=== PATIENT | male | born 1965 | race Caucasian/White ===

== ENCOUNTER 2018-04-20 05:49 | Day surgery (SDC) | payer OTHER ==
[2018-04-16 12:14] VITALS: BP 140/91
[2018-04-20] VITALS (18 sets, daily range): BP systolic 100–144; BP diastolic 65–89
[~2018-04-20] VITALS: Ht 188 cm; Wt 142.5 kg
[~2018-04-20 05:49] MED LIST: APIX5TAB PO; CARI350T PO; LISI1TAB11 PO; METO25TA6 PO; TAMS-1 PO; TRAM50TA4 PO; ZOLP10TA2 PO
[2018-04-20] MEDS ORDERED: LACTATED RINGERS 1000ML 1,000 ML IV ONE (06:14)
[2018-04-20] MEDS: CEFAZOLIN SODIUM 1 GM VIAL ONE ×2 (06:58→08:25)
[2018-04-20] MEDS ORDERED: DEXAMETHASONE SOD PHOSPHATE 10MG/ML 1ML VIAL ONE (07:41)
[2018-04-20] MEDS ORDERED: MIDAZOLAM HCL 1 MG/ML 2ML VIAL ONE (07:41)
[2018-04-20] MEDS ORDERED: GLYCOPYRROLATE 1 MG/5 ML SYRINGE ONE (07:41)
[2018-04-20] MEDS ORDERED: ONDANSETRON HCL 4 MG/2 ML VIAL ONE ×2 (07:41→10:09)
[2018-04-20] MEDS ORDERED: LIDOCAINE PF 2% 5ML ABBOJECT ONE ×2 (07:41→07:43)
[2018-04-20] MEDS ORDERED: FENTANYL CITRATE PF 50 MCG/1 ML 2ML VIAL ONE (07:42)
[2018-04-20] MEDS ORDERED: PROPOFOL 10 MG/ML 20ML VIAL IV ONE (07:42)
[2018-04-20] MEDS ORDERED: NEOSTIGMINE 5MG/5ML SYR IV ONE (07:42)
[2018-04-20] MEDS ORDERED: ROCURONIUM 10MG/1ML SYR 10 MG/ML ML ONE (07:42)
[2018-04-20] MEDS ORDERED: PHENYLEPHRINE HCL 10 MG/ML 1ML VIAL IV ONE ×2 (07:43→07:45)
[2018-04-20] MEDS ORDERED: IOHEXOL-350 50ML VIAL IV ONE (07:44)
[2018-04-20] MEDS ORDERED: CEFAZOLIN 3GM /D5W 100ML 100 ML IV PRN (08:00)
[2018-04-20] MEDS ORDERED: MEPERIDINE-PF 25 MG/ML SYG ONE ×2 (10:13→10:23)
== END 2018-04-20 11:35 | disposition home or self-care (01) ==
LOC: DAH 05:49
PROVIDERS: ATTEND Surgery
DX: N20.0 Calculus of kidney (principal); N40.0 Benign prostatic hyperplasia without lower urinary tract symptoms
CPT/HCPCS: 50590; 52332; 74420; 87088; A4354; A4358; A4510; A4600; C2617; J0690; J1100; J2001 ×2; J2175 ×2; J2250; J2370 ×2; J2405 ×2; J2704; J2710; J3010; J3490; J7120; Q9967

== ENCOUNTER 2018-04-25 11:31 | Emergency (ER) | payer OTHER ==
[2018-04-25 12:09] LABS: APPEARANCE,URINE TURBID (CLEAR); BILIRUBIN,URINE SMALL (NEGATIVE); COLOR,URINE RED (YELLOW); GLUCOSE, URINE (UA) NEGATIVE (NEGATIVE); KETONES,URINE 5 mg/dL (NEGATIVE); LEUKOCYTE ESTERASE ,URINE SMALL (NEGATIVE); NITRATE,URINE POSITIVE (NEGATIVE); OCCULT BLOOD,URINE LARGE (NEGATIVE); PROTEIN,URINE >=300 (NEGATIVE)
[2018-04-25 12:18] LABS: BACTERIA,URINE Rare /HPF (None Seen); RBC,URINE TNTC /HPF (0-1); SQUAMOUS EPITHELIAL CELL,UR None Seen /HPF (0-2)
[2018-04-25] MEDS ORDERED: METOCLOPRAMIDE 10 MG/2 ML VIAL ONE (12:48)
[2018-04-25] MEDS ORDERED: ONDANSETRON HCL 4 MG/2 ML VIAL ONE (12:48)
[2018-04-25] MEDS ORDERED: SODIUM CHLORIDE 0.9% 1000ML 1,000 ML IV ONE (12:48)
[2018-04-25] MEDS ORDERED: KETOROLAC TROMETHAMINE 30MG/ML ONE (12:49)
[2018-04-25 13:04] LABS: BASOPHILS % (AUTO) 0.3 % (0.0-5.0); EOSINOPHILS % (AUTO) 2.6 % (0.0-8.0); HEMATOCRIT 39.5 % (42-54); LYMPHOCYTES % (AUTO) 11.6 % (21.0-51.0); MEAN CORPUSCULAR HGB CONC 34.5 g/dL (32.0-36.0); MEAN CORPUSCULAR VOLUME 98.6 fL (79-99); MONOCYTES % (AUTO) 4.8 % (3.0-13.0); NEUTROPHILS % (AUTO) 80.7 % (40.0-77.0); PLATELET COUNT (AUTO) 209 K/uL (130-400); RED CELL DISTRIBUTION WIDTH 15.5 % (11.0-15.5); WHITE BLOOD COUNT (AUTO) 8.6 K/uL (4.8-10.8)
[2018-04-25 13:17] LABS: CREATININE 1.1 mg/dL (0.5-1.5); POTASSIUM 4.3 mmol/L (3.5-5.1)
[2018-04-25 13:18] LABS: INR 0.98 (0.85-1.15); PARTIAL THROMBOPLASTIN TIME 29.7 SEC (26.3-35.5); PROTHROMBIN TIME 10.3 SEC (9.6-11.6)
[2018-04-25 13:21] LABS: ALBUMIN 3.6 g/dL (3.5-5.0); BILIRUBIN,TOTAL 0.5 mg/dL (0.2-1.0)
== END 2018-04-25 15:10 | disposition home or self-care (01) ==
LOC: EDH 11:31
DX: S22.42XA Multiple fractures of ribs, left side, initial encounter for closed fracture (principal); R30.0 Dysuria; R31.9 Hematuria, unspecified; E78.5 Hyperlipidemia, unspecified; I48.91 Unspecified atrial fibrillation; Z98.890 Other specified postprocedural states; Z87.891 Personal history of nicotine dependence; W01.198A Fall on same level from slipping, tripping and stumbling with subsequent striking against other object, initial encounter; Y93.89 Activity, other specified; Y92.091 Bathroom in other non-institutional residence as the place of occurrence of the external cause; Y99.8 Other external cause status
CPT/HCPCS: 36415; 71101; 80053; 81001; 83605; 83690; 85025; 85610; 85730; 87088; 96374; 96375; 99284; J1885; J2405; J2765; J7030

== ENCOUNTER 2018-05-03 23:06 | Emergency (ER) | payer OTHER ==
[2018-05-03 23:32] LABS: APPEARANCE,URINE Clear (CLEAR); BILIRUBIN,URINE Negative (NEGATIVE); COLOR,URINE Yellow (YELLOW); GLUCOSE, URINE (UA) Negative (NEGATIVE); KETONES,URINE Negative (NEGATIVE); LEUKOCYTE ESTERASE ,URINE Moderate (NEGATIVE); NITRATE,URINE Negative (NEGATIVE); OCCULT BLOOD,URINE Large (NEGATIVE); PH,URINE 5.5 (5.0-8.0); PROTEIN,URINE POS 2+ (NEGATIVE)
[2018-05-03 23:43] LABS: BACTERIA,URINE Rare /HPF (None Seen); RBC,URINE 26-50 /HPF (0-1); SQUAMOUS EPITHELIAL CELL,UR Rare /HPF (0-2); YEAST,URINE BUDDING Few /HPF (None Seen)
[2018-05-04 01:26] LABS: BASOPHILS % (AUTO) 0.3 % (0.0-5.0); EOSINOPHILS % (AUTO) 3.2 % (0.0-8.0); HEMATOCRIT 36.9 % (42-54); LYMPHOCYTES % (AUTO) 10.3 % (21.0-51.0); MEAN CORPUSCULAR HEMOGLOBIN 33.6 pg (27.0-33.0); MEAN CORPUSCULAR HGB CONC 34.1 g/dL (32.0-36.0); MEAN CORPUSCULAR VOLUME 98.3 fL (79-99); MONOCYTES % (AUTO) 6.2 % (3.0-13.0); PLATELET COUNT (AUTO) 306 K/uL (130-400); RED BLOOD CELL COUNT(AUTO) 3.75 MIL/uL (4.50-6.20); RED CELL DISTRIBUTION WIDTH 14.8 % (11.0-15.5); WHITE BLOOD COUNT (AUTO) 8.7 K/uL (4.8-10.8)
[2018-05-04 01:32] LABS: POTASSIUM 4.5 mmol/L (3.5-5.1)
[2018-05-04 01:38] LABS: BILIRUBIN,TOTAL 0.3 mg/dL (0.2-1.0); TOTAL PROTEIN, SERUM 7.2 g/dL (6.0-8.3)
[2018-05-04] MEDS ORDERED: SODIUM CHLORIDE 0.9% 1000ML 1,000 ML IV ONE (02:20)
[2018-05-04] MEDS ORDERED: LIDOCAINE HCL 1% 20 ML VIAL ONE (02:21)
[2018-05-04] MEDS ORDERED: SODIUM CHLORIDE 0.9% 50 ML IV ONE (02:21)
[2018-05-04] MEDS ORDERED: KETOROLAC TROMETHAMINE 30MG/ML ONE (02:21)
[2018-05-04] MEDS ORDERED: METOCLOPRAMIDE 10 MG/2 ML VIAL ONE (03:12)
[2018-05-04] MEDS ORDERED: PHENAZOPYRIDINE HCL 200 MG TABLET ONE (03:13)
== END 2018-05-04 03:38 | disposition home or self-care (01) ==
LOC: EDH 23:06
DX: R30.0 Dysuria (principal); R33.9 Retention of urine, unspecified; R31.9 Hematuria, unspecified; I48.91 Unspecified atrial fibrillation; E78.5 Hyperlipidemia, unspecified; Z88.1 Allergy status to other antibiotic agents; Z88.8 Allergy status to other drugs, medicaments and biological substances; Z88.2 Allergy status to sulfonamides
CPT/HCPCS: 36415; 74018; 80053; 81001; 85025; 96361; 96374; 96375; 99284; J1885; J2765; J7030

== ENCOUNTER 2018-05-11 06:05 | Day surgery (SDC) | payer OTHER ==
[2018-05-08 13:30] VITALS: BP 127/88
[2018-05-11] VITALS (12 sets, daily range): BP systolic 105–136; BP diastolic 63–98
[~2018-05-11] VITALS: Ht 185.4 cm; Wt 141.2 kg
[2018-05-11] MEDS ORDERED: LIDOCAINE HCL 2% PF 20 ML JEL DISP.SYRIN MM ONE (07:25)
[2018-05-11] MEDS ORDERED: PROPOFOL 10 MG/ML 20ML VIAL IV ONE ×2 (07:28→09:01)
[2018-05-11] MEDS ORDERED: MIDAZOLAM HCL 1 MG/ML 2ML VIAL ONE (07:28)
[2018-05-11] MEDS ORDERED: FENTANYL CITRATE PF 50 MCG/1 ML 2ML VIAL ONE ×2 (07:29→09:42)
[2018-05-11] MEDS ORDERED: ONDANSETRON HCL 4 MG/2 ML VIAL ONE (07:54)
[2018-05-11] MEDS ORDERED: FAMOTIDINE/PF 20 MG/2 ML VIAL IV ONE (07:55)
[2018-05-11] MEDS ORDERED: PHEN-847 PO (08:01)
[2018-05-11] MEDS ORDERED: MELO7.5O PO (08:01)
[2018-05-11] MEDS ORDERED: AMOX1TAB16 PO (08:01)
[2018-05-11] MEDS ORDERED: DICY20TA11 PO (08:01)
[2018-05-11] MEDS ORDERED: MELO-106 PO (08:03)
[2018-05-11] MEDS ORDERED: LACTATED RINGERS 1000ML 1,000 ML IV ONE (08:08)
== END 2018-05-11 10:30 | disposition home or self-care (01) ==
LOC: DAH 06:05
PROVIDERS: ATTEND Surgery
DX: Z46.6 Encounter for fitting and adjustment of urinary device (principal); N40.1 Benign prostatic hyperplasia with lower urinary tract symptoms; N13.8 Other obstructive and reflux uropathy; Z87.442 Personal history of urinary calculi; I10 Essential (primary) hypertension; I48.91 Unspecified atrial fibrillation; I25.10 Atherosclerotic heart disease of native coronary artery without angina pectoris; Z79.899 Other long term (current) drug therapy; Z88.8 Allergy status to other drugs, medicaments and biological substances; Z98.890 Other specified postprocedural states; Z95.1 Presence of aortocoronary bypass graft; Z80.1 Family history of malignant neoplasm of trachea, bronchus and lung; Z80.42 Family history of malignant neoplasm of prostate
CPT/HCPCS: 52310; 87088; A4358; A4510; J2405; J2704 ×2; J3010 ×2; J3490; J7120; J2250

== ENCOUNTER 2018-06-10 11:47 | Day surgery (SDC) | payer OTHER ==
[2018-06-10] VITALS (7 sets, daily range): BP systolic 87–113; BP diastolic 47–75
[~2018-06-10] VITALS: Ht 180.3 cm; Wt 136.1 kg
[~2018-06-10 11:47] MED LIST changes: +AMOX1TAB16 PO; +DICY20TA11 PO; +MELO-106 PO; +PHEN-847 PO; +SODIUM CHLORIDE 0.9% 1000ML 1,000 ML IV ONE
[2018-06-10] MEDS ORDERED: PROPOFOL 10 MG/ML 20ML VIAL IV ONE (13:47)
== END 2018-06-10 15:05 | disposition home or self-care (01) ==
LOC: DAH 11:47 → ENDO 11:47
PROVIDERS: ATTEND Internal Medicine Gastroenterology
DX: D12.5 Benign neoplasm of sigmoid colon (principal); K29.50 Unspecified chronic gastritis without bleeding; K57.30 Diverticulosis of large intestine without perforation or abscess without bleeding; K64.0 First degree hemorrhoids; Z86.010 Personal history of colon polyps; Z68.41 Body mass index [BMI] 40.0-44.9, adult; Z79.899 Other long term (current) drug therapy; Z79.01 Long term (current) use of anticoagulants; I10 Essential (primary) hypertension; E78.5 Hyperlipidemia, unspecified; I48.91 Unspecified atrial fibrillation; Z98.890 Other specified postprocedural states; Z95.1 Presence of aortocoronary bypass graft; Z80.1 Family history of malignant neoplasm of trachea, bronchus and lung; Z80.42 Family history of malignant neoplasm of prostate; Z82.49 Family history of ischemic heart disease and other diseases of the circulatory system; Z83.3 Family history of diabetes mellitus; Z88.8 Allergy status to other drugs, medicaments and biological substances; Z80.0 Family history of malignant neoplasm of digestive organs
CPT/HCPCS: 43239; 45380; 88305; 93005; A4606; J2704; J7030

== ENCOUNTER 2018-06-11 11:47 | Day surgery (SDC) | payer OTHER ==
[~2018-06-11] VITALS: Ht 182.9 cm; Wt 134.5 kg
[2018-06-11] VITALS (7 sets, daily range): BP systolic 91–125; BP diastolic 54–99
[~2018-06-11 11:47] MED LIST changes: -SODIUM CHLORIDE 0.9% 1000ML 1,000 ML IV ONE
[2018-06-11] MEDS ORDERED: SODIUM CHLORIDE 0.9% 1000ML 1,000 ML IV ONE (12:47)
[2018-06-11] MEDS ORDERED: PROPOFOL 10 MG/ML 20ML VIAL IV ONE ×3 (13:18→13:51)
[2018-06-11] MEDS ORDERED: LIDOCAINE HCL-MPF 2% 5ML VIAL ONE (13:19)
[2018-06-11] MEDS ORDERED: EPHEDRINE SULFATE 50 MG/ML AMPULE ONE (13:34)
[2018-06-11] MEDS ORDERED: PHENYLEPHRINE HCL 10 MG/ML 1ML VIAL IV ONE (13:35)
== END 2018-06-11 15:00 | disposition home or self-care (01) ==
LOC: ENDO 11:47
PROVIDERS: ATTEND Internal Medicine Gastroenterology
DX: K63.5 Polyp of colon (principal); K57.30 Diverticulosis of large intestine without perforation or abscess without bleeding; R10.12 Left upper quadrant pain; K64.0 First degree hemorrhoids; Z80.0 Family history of malignant neoplasm of digestive organs; Z86.010 Personal history of colon polyps; Z88.8 Allergy status to other drugs, medicaments and biological substances; I10 Essential (primary) hypertension; E78.5 Hyperlipidemia, unspecified; I48.91 Unspecified atrial fibrillation; K76.0 Fatty (change of) liver, not elsewhere classified; Z68.41 Body mass index [BMI] 40.0-44.9, adult; Z79.899 Other long term (current) drug therapy; Z98.84 Bariatric surgery status; Z98.890 Other specified postprocedural states; Z80.1 Family history of malignant neoplasm of trachea, bronchus and lung; Z80.42 Family history of malignant neoplasm of prostate; Z83.3 Family history of diabetes mellitus; Z82.49 Family history of ischemic heart disease and other diseases of the circulatory system; E66.01 Morbid (severe) obesity due to excess calories
CPT/HCPCS: 45380; 45385; 88305; A4606; J2370; J2704 ×3; J3490; J7030